=== PATIENT | female | born 1960 | race Caucasian/White ===

== ENCOUNTER 2016-12-17 10:11 | Day surgery (SDC) | payer BC ==
[2016-12-17] MEDS ORDERED: MARCAINE 0.25% INJ ONE (10:18)
[2016-12-17] MEDS ORDERED: NS 50 ML IV + SPIKE MINIBAG* 50 ML IV ONE (10:20)
[2016-12-17] MEDS ORDERED: D5 LR 1000 ML 1,000 ML IV ONE (10:20)
[2016-12-17] MEDS ORDERED: ANCEF VIAL 1 GM ONE (10:21)
[2016-12-17] MEDS ORDERED: FENTANYL INJ 250 mcg ONE (10:58)
[2016-12-17] MEDS ORDERED: NS IRRIGATION 1000 ML 1,000 ML IR ONE (11:04)
[2016-12-17] MEDS ORDERED: NS IRRIGATION 1000 ML 1,000 ML with BACITRACIN VIAL 50,000 UNT IR ONE ×2 (11:04)
[2016-12-17] MEDS ORDERED: PHENERGAN INJ 25 MG IVP PRN (12:44)
[2016-12-17] MEDS ORDERED: BENADRYL INJ 50 MG VIAL IVP PRN (12:44)
[2016-12-17] MEDS ORDERED: REGLAN INJ 10 MG VIAL IVP PRN (12:44)
[2016-12-17] MEDS ORDERED: DILAUDID INJ IVP PRN (12:44)
[2016-12-17] MEDS ORDERED: ZOFRAN INJ 4 MG VIAL IVP PRN (12:44)
[2016-12-17] MEDS ORDERED: NORCO 5/325 MG TAB ONE (13:34)
[2016-12-17 14:15] VITALS: BP 147/84
[2016-12-17] MEDS ORDERED: DIPRIVAN VIAL ONE (15:06)
[2016-12-17] MEDS ORDERED: VERSED ONE (15:06)
[2016-12-17] MEDS ORDERED: SUPRANE IN ONE (15:06)
[2016-12-17] MEDS ORDERED: XYLOCAINE 2 % (PLAIN) ONE (15:06)
[2016-12-17] MEDS ORDERED: EPHEDRINE SULFATE INJ ONE (15:06)
== END 2016-12-17 14:10 | disposition home or self-care (01) | DRG 506 ==
LOC: SURG1 10:11
PROVIDERS: ATTEND Specialist
PROC: 0RUS0KZ Supplement Right Carpometacarpal Joint with Nonautologous Tissue Substitute, Open Approach (ICD-10-PCS; 2016-12-17)
PROC: 0PBM0ZZ Excision of Right Carpal, Open Approach (ICD-10-PCS; principal; 2016-12-17 08:30)
DX: M19.041 Primary osteoarthritis, right hand (principal)
CPT/HCPCS: A4222; S0020; J0690; J1170; J2001; J2250; J3010; J3490; J7120